=== PATIENT | female | born 1985 | race Caucasian/White ===

== ENCOUNTER 2021-03-04 05:49 | Emergency (ER) | payer BC, MEDICAID, SELFPAY ==
[2021-03-04 05:50] VITALS: BP 127/91; PULSE 87; RESP 16; TEMP 36.4; O2SAT 99; BMI 22.0
--- NOTE | 2021-03-04 06:20 | EX.ED.DYSGE1 ---
HPI History of Present Illness Chief Complaint: Wound Informant: patient Narrative Narrative: Patient's noted a swollen area in the inside of her left ear for several days. Is getting more tender. No drainage. No fevers chills or sweats. No known trauma. Nothing that she knows started it. No other complaints. Nothing makes it better or worse other than pressing on it makes it worse. PFSH PFSH Medical History Anxiety Asthma Depression Home Medications albuterol sulfate [Proair Hfa (SP)Vent Pts] 1 - 2 puff INHALATION Q4H PRN PRN 12/16/14 [History Last Taken 05/16/15] citalopram 20 mg PO DAILY 12/16/14 [History Last Taken 05/16/15] clonazepam 0.5 mg PO BID 12/16/14 [History Last Taken 05/16/15] loratadine [Claritin] 10 mg PO DAILY 12/16/14 [History Last Taken 12/16/14] mometasone-formoterol [Dulera 200 Mcg/5 Mcg Inhaler] 8.8 g IH Q4H PRN PRN 02/06/15 [History Last Taken 05/16/15] cyclobenzaprine 10 mg PO TID PRN #20 tablet 05/16/15 [Rx Last Taken Unknown] naproxen 500 mg PO BID #20 tab 05/16/15 [Rx Last Taken Unknown] cephalexin 500 mg PO Q6 #40 capsule 05/28/15 [Rx Last Taken Unknown] oxycodone-acetaminophen 1 - 2 tab PO Q4H PRN PRN #20 tab 05/28/15 [Rx Last Taken Unknown] sulfamethoxazole-trimethoprim 1 tab PO BID #20 tablet 05/28/15 [Rx Last Taken Unknown] clindamycin HCl 300 mg PO 4X/DAY #30 capsule 07/20/15 [Rx Last Taken Unknown] naproxen [Naprosyn] 500 mg PO BID #14 tab 07/20/15 [Rx Last Taken Unknown] oxycodone-acetaminophen 1 tab PO Q4H PRN PRN #20 tablet 07/20/15 [Rx Last Taken Unknown] sulfamethoxazole-trimethoprim [Bactrim DS] 1 tab PO BID #14 tab 03/04/21 [Rx Last Taken Unknown] Allergy/AdvReac Type Severity Reaction Status Date / Time No Known Allergies Allergy Verified 03/04/21 05:52 Social History Smoking Status: Current every day smoker tobacco type: cigarettes ROS ROS ED Constitutional Constitutional ED: Denies chills or fever(s) Eyes Eyes: Denies blurry vision or change in vision ENT ENT ED: Reports ear pain; Denies rhinorrhea or sore throat Respiratory/Chest Respiratory/Chest: Denies cough Gastrointestinal Gastrointestinal: Denies nausea or vomiting Musculoskeletal Musculoskeletal: Denies neck pain Integumentary Reports abscess and other Details: See history of present illness. Neurologic Neurologic: Denies headache(s), paresthesias or weakness Endocrine Endocrinology: Denies polydipsia or polyuria EXAM Physical Exam Const Vital Signs: 03/04/21 05:50 Temperature 97.6 F L Temperature Source Temporal Pulse Rate 87 Respiratory Rate 16 Blood Pressure 127/91 H Blood Pressure Mean 103 Pulse Ox 99 Oxygen Delivery Method Room Air Positive well nourished and well developed General Appearance ED: well developed and NAD HEENT HEENT Narrative: Patient has a 5 mm around abscess pointing on the external opening of her auditory canal. There is some mild erythema. The auricle itself is not red or inflamed at this time. Tympanic membrane is normal. There is no facial rash or extension onto the face. Negative Lee sign. No visual complaints either Eyes PERRL and EOMs intact bilaterally General Eye ED: Negative for pale conjunctiva or scleral icterus Neck no lymphadenopathy Resp normal respiratory effort Skin Skin Narrative: See above under ear section. MDM MDM MDM Narrative Medical decision making narrative: I discussed risks benefits and options with the patient. We chose to proceed with drainage. I explained that anesthesia would probably be more painful than just a quick incision. She agreed with this. Procedure: Drainage of abscess The area was cleansed with alcohol. An 11 blade was used to unroofed the abscess. We are able to then use a Q-tip to milk out a fair amount of purulent material. Some of this was moist and fresh. Some of this was harder and older like an epidermal cyst type material. She actually tolerated this surprisingly well. Because of the location next to the cartilage, the erythema in the size I will start her on a course of antibiotics. Discharge Plan Triage Chief Complaint: Wound ED Provider: Odilon De Jesus Dx/Rx/DC Orders Clinical Impression: Abscess of left ear canal Instructions: ED Abscess Incision And Drainage Prescriptions: New sulfamethoxazole-trimethoprim [Bactrim DS] 800-160 mg tablet 1 tab PO BID Qty: 14 RF: 0 No Action clonazepam 0.5 MG tablet 0.5 mg PO BID RF: 0 citalopram 20 MG tablet 20 mg PO DAILY RF: 0 albuterol sulfate [ProAir HFA] 1 PUFF inhaler 1 - 2 puff inhalation Q4H PRN PRN (Reason: Sob &/Or Wheezing) RF: 0 loratadine [Allergy Relief (loratadine)] 10 MG tablet 10 mg PO DAILY RF: 0 mometasone-formoterol [Dulera] 8.8 GM HFA aerosol inhaler 8.8 g IH Q4H PRN PRN (Reason: Sob &/Or Wheezing) RF: 0 cyclobenzaprine 10 MG tablet 10 mg PO TID PRN (Reason: Muscle Spasm) Qty: 20 RF: 0 naproxen 500 MG tablet 500 mg PO BID Qty: 20 RF: 0 oxycodone-acetaminophen 1 TABLET tablet 1 - 2 tab PO Q4H PRN PRN (Reason: Pain) Qty: 20 RF: 0 sulfamethoxazole-trimethoprim 1 TABLET tablet 1 tab PO BID Qty: 20 RF: 0 cephalexin 500 MG capsule 500 mg PO Q6 Qty: 40 RF: 0 clindamycin HCl 300 MG capsule 300 mg PO 4X/DAY Qty: 30 RF: 0 oxycodone-acetaminophen 1 TABLET tablet 1 tab PO Q4H PRN PRN (Reason: Pain) Qty: 20 RF: 0 naproxen [Naprosyn] 500 MG tablet 500 mg PO BID Qty: 14 RF: 0 Primary Care Provider: Care Physician,No Primary Referrals: Care Physician,No Primary [Primary Care Provider] - Activity Restrictions/Additional Instructions: Follow-up with your physician if not better in 3 to 5 days. Disposition Disposition: Home, Self Care Discharge Date/Time: 03/04/21 06:38
== END 2021-03-04 06:38 | disposition home or self-care (01) ==
PROVIDERS: Emergency Provider Emergency Medicine
DX: H60.02 Abscess of left external ear (principal); F17.210 Nicotine dependence, cigarettes, uncomplicated; J45.909 Unspecified asthma, uncomplicated; F41.9 Anxiety disorder, unspecified; F32.A Depression, unspecified
CPT/HCPCS: 69020; 99282

== ENCOUNTER 2021-03-17 21:34 | Emergency (ER) | payer BC, MEDICAID, SELFPAY ==
[2021-03-17 21:34] VITALS: BP 131/87; PULSE 103; RESP 16; TEMP 36.4; O2SAT 100; BMI 22.0
--- NOTE | 2021-03-17 22:09 | EX.ED.DYSGE1 ---
HPI History of Present Illness Chief Complaint: Wound Detail of Chief Complaint: Abscess left axilla Informant: patient Onset/Context/Timing Onset: Weeks Context: Gradual Onset Current Severity: Moderate Maximum Severity: Moderate Narrative Narrative: Patient presents secondary to increasing size of abscess in left axilla. Patient states it was a small lump for several weeks. She was here earlier this month secondary to a small abscess in her ear canal that was drained. She was put on 7 days of Bactrim. She states after completing the course of antibiotics the abscess in her left axilla seem to enlarge. She initially had a small amount of drainage but has not had any drainage from the wound in several days. No fever or chills. [facility] Medical History Anxiety Asthma Depression Home Medications albuterol sulfate [Proair Hfa (SP)Vent Pts] 1 - 2 puff INHALATION Q4H PRN PRN 12/16/14 [History Last Taken 05/16/15] citalopram 20 mg PO DAILY 12/16/14 [History Last Taken 05/16/15] clonazepam 0.5 mg PO BID 12/16/14 [History Last Taken 05/16/15] loratadine [Claritin] 10 mg PO DAILY 12/16/14 [History Last Taken 12/16/14] mometasone-formoterol [Dulera 200 Mcg/5 Mcg Inhaler] 8.8 g IH Q4H PRN PRN 02/06/15 [History Last Taken 05/16/15] cyclobenzaprine 10 mg PO TID PRN #20 tablet 05/16/15 [Rx Last Taken Unknown] naproxen 500 mg PO BID #20 tab 05/16/15 [Rx Last Taken Unknown] cephalexin 500 mg PO Q6 #40 capsule 05/28/15 [Rx Last Taken Unknown] oxycodone-acetaminophen 1 - 2 tab PO Q4H PRN PRN #20 tab 05/28/15 [Rx Last Taken Unknown] sulfamethoxazole-trimethoprim 1 tab PO BID #20 tablet 05/28/15 [Rx Last Taken Unknown] clindamycin HCl 300 mg PO 4X/DAY #30 capsule 07/20/15 [Rx Last Taken Unknown] naproxen [Naprosyn] 500 mg PO BID #14 tab 07/20/15 [Rx Last Taken Unknown] oxycodone-acetaminophen 1 tab PO Q4H PRN PRN #20 tablet 07/20/15 [Rx Last Taken Unknown] sulfamethoxazole-trimethoprim [Bactrim DS] 1 tab PO BID #14 tab 03/04/21 [Rx Last Taken Unknown] cephalexin 500 mg PO Q6H #40 cap 03/17/21 [Rx Last Taken Unknown] sulfamethoxazole-trimethoprim [Bactrim DS] 1 tab PO BID #20 tab 03/17/21 [Rx Last Taken Unknown] Allergy/AdvReac Type Severity Reaction Status Date / Time No Known Allergies Allergy Verified 03/17/21 21:36 Social History Smoking Status: Current every day smoker tobacco type: cigarettes ROS ROS ED Constitutional Constitutional ED: Denies chills or fever(s) Eyes Eyes: Denies change in vision Cardiovascular Cardiovascular: Denies chest pain Respiratory/Chest Respiratory/Chest: Denies cough or dyspnea Gastrointestinal Gastrointestinal: Denies abdominal pain, diarrhea, nausea or vomiting Musculoskeletal Musculoskeletal: Denies back pain or myalgias Integumentary Reports abscess; Denies rash Neurologic Neurologic: Denies headache(s) or weakness Psychiatric Psychiatric: Denies anxiety or depression Allergic/Immunologic Allergic/Immunologic ED: Denies urticaria EXAM Physical Exam Const Vital Signs: 03/17/21 21:34 03/17/21 22:28 Temperature 97.5 F L 97.5 F L Temperature Source Temporal Temporal Pulse Rate 103 H 103 H Respiratory Rate 16 16 Blood Pressure 131/87 H 131/87 H Blood Pressure Mean 101 101 Pulse Ox 100 100 Oxygen Delivery Method Room Air Room Air Positive well nourished and well developed General Appearance ED: well developed HEENT Reports normocephalic and head/scalp atraumatic Eyes PERRL and EOMs intact bilaterally Neck supple Chest Wall inspection of chest normal and palpation of chest normal Resp normal respiratory effort and clear to auscultation bilaterally Cardio regular rate and regular rhythm GI normal to inspection, nondistended, normoactive bowel sounds Palpation: soft Extremity normal to inspection Extremity Narrative: 2 x 3 cm cutaneous abscess left axilla. No cellulitis. No spontaneous drainage. Neuro oriented x3 and no sensory deficits noted Sensorium / Orientation: alert Motor Exam: strength 5/5 throughout Psych mental status grossly normal Skin Skin Narrative: Abscess as noted above. MDM MDM MDM Narrative Medical decision making narrative: Patient was given a dose of Bactrim and Keflex. I&D set up ordered. Treatment and Re-Evaluation Comments:: I&D performed after injecting 1 cc of 1% lidocaine locally. X incision with a #11 blade is made. Minimal drainage noted. Area is still firm and I anticipate additional drainage as she takes antibiotics. She will continue warm compresses. Discharge Plan Triage Chief Complaint: Wound ED Provider: Brittani Rinaldi Dx/Rx/DC Orders Clinical Impression: Cutaneous abscess Instructions: ED Abscess Incision And Drainage Prescriptions: New sulfamethoxazole-trimethoprim [Bactrim DS] 800-160 mg tablet 1 tab PO BID Qty: 20 RF: 0 cephalexin 500 mg capsule 500 mg PO Q6H Qty: 40 RF: 0 No Action clonazepam 0.5 MG tablet 0.5 mg PO BID RF: 0 citalopram 20 MG tablet 20 mg PO DAILY RF: 0 albuterol sulfate [ProAir HFA] 1 PUFF inhaler 1 - 2 puff inhalation Q4H PRN PRN (Reason: Sob &/Or Wheezing) RF: 0 loratadine [Allergy Relief (loratadine)] 10 MG tablet 10 mg PO DAILY RF: 0 mometasone-formoterol [Dulera] 8.8 GM HFA aerosol inhaler 8.8 g IH Q4H PRN PRN (Reason: Sob &/Or Wheezing) RF: 0 cyclobenzaprine 10 MG tablet 10 mg PO TID PRN (Reason: Muscle Spasm) Qty: 20 RF: 0 naproxen 500 MG tablet 500 mg PO BID Qty: 20 RF: 0 oxycodone-acetaminophen 1 TABLET tablet 1 - 2 tab PO Q4H PRN PRN (Reason: Pain) Qty: 20 RF: 0 sulfamethoxazole-trimethoprim 1 TABLET tablet 1 tab PO BID Qty: 20 RF: 0 cephalexin 500 MG capsule 500 mg PO Q6 Qty: 40 RF: 0 clindamycin HCl 300 MG capsule 300 mg PO 4X/DAY Qty: 30 RF: 0 oxycodone-acetaminophen 1 TABLET tablet 1 tab PO Q4H PRN PRN (Reason: Pain) Qty: 20 RF: 0 naproxen [Naprosyn] 500 MG tablet 500 mg PO BID Qty: 14 RF: 0 sulfamethoxazole-trimethoprim [Bactrim DS] 800-160 mg tablet 1 tab PO BID Qty: 14 RF: 0 Primary Care Provider: Care Physician,No Primary Referrals: Feliz Garvin MD [STAFF PHYSICIAN] - As Needed Care Physician,No Primary [Primary Care Provider] - Disposition Disposition: Home, Self Care
[2021-03-17 22:28] VITALS: BP 131/87; PULSE 103; RESP 16; TEMP 36.4; O2SAT 100
[2021-03-17] MEDS: Cephalexin 500 MG Capsule PO (22:52)
[2021-03-17] MEDS: Lidocaine 1% (20 ml mdv) 20 ML Vial INFILT (22:52)
[2021-03-17] MEDS: Smz/Tmp Ds Tablet 1 TABLET PO (22:52)
== END 2021-03-17 22:54 | disposition home or self-care (01) ==
PROVIDERS: Emergency Provider Emergency Medicine
DX: L02.412 Cutaneous abscess of left axilla (principal); F17.210 Nicotine dependence, cigarettes, uncomplicated
CPT/HCPCS: 10060; 99283

== ENCOUNTER 2021-05-25 07:15 | Emergency (ER) | payer BC, MEDICAID, SELFPAY ==
[2021-05-25 07:16] VITALS: BP 131/89; PULSE 103; RESP 16; TEMP 36.4; O2SAT 100; BMI 21.2
--- NOTE | 2021-05-25 07:31 | ED.VIS.FEGU ---
HPI HPI - Female History of Present Illness Chief Complaint: Female C/O Detail of Chief Complaint: Concern for STD Informant: patient Narrative Narrative: Patient presents to the emergency department with concern about possible STD. Patient states that she has had STDs before and feels like she may have one again. Patient states that she had intercourse with her boyfriend for 5 days ago and did not use protection. Patient started with a yellowish discharge 2 days ago. Patient has some itching and lower pelvic discomfort. Patient denies fever or vomiting. Prior similar symptoms: Yes PFSH PFSH Medical History Anxiety Asthma Depression Home Medications albuterol sulfate [Proair Hfa (SP)Vent Pts] 1 - 2 puff INHALATION Q4H PRN PRN 12/16/14 [History Last Taken 05/16/15] citalopram 20 mg PO DAILY 12/16/14 [History Last Taken 05/16/15] clonazepam 0.5 mg PO BID 12/16/14 [History Last Taken 05/16/15] loratadine [Claritin] 10 mg PO DAILY 12/16/14 [History Last Taken 12/16/14] mometasone-formoterol [Dulera 200 Mcg/5 Mcg Inhaler] 8.8 g IH Q4H PRN PRN 02/06/15 [History Last Taken 05/16/15] cyclobenzaprine 10 mg PO TID PRN #20 tablet 05/16/15 [Rx Last Taken Unknown] naproxen 500 mg PO BID #20 tab 05/16/15 [Rx Last Taken Unknown] cephalexin 500 mg PO Q6 #40 capsule 05/28/15 [Rx Last Taken Unknown] oxycodone-acetaminophen 1 - 2 tab PO Q4H PRN PRN #20 tab 05/28/15 [Rx Last Taken Unknown] sulfamethoxazole-trimethoprim 1 tab PO BID #20 tablet 05/28/15 [Rx Last Taken Unknown] clindamycin HCl 300 mg PO 4X/DAY #30 capsule 07/20/15 [Rx Last Taken Unknown] naproxen [Naprosyn] 500 mg PO BID #14 tab 07/20/15 [Rx Last Taken Unknown] oxycodone-acetaminophen 1 tab PO Q4H PRN PRN #20 tablet 07/20/15 [Rx Last Taken Unknown] sulfamethoxazole-trimethoprim [Bactrim DS] 1 tab PO BID #14 tab 03/04/21 [Rx Last Taken Unknown] cephalexin 500 mg PO Q6H #40 cap 03/17/21 [Rx Last Taken Unknown] naproxen [Naprosyn] 500 mg PO BID PRN #20 tab 03/17/21 [Rx Last Taken Unknown] sulfamethoxazole-trimethoprim [Bactrim DS] 1 tab PO BID #20 tab 03/17/21 [Rx Last Taken Unknown] Allergy/AdvReac Type Severity Reaction Status Date / Time No Known Allergies Allergy Verified 05/25/21 07:18 Social History Smoking Status: Current every day smoker tobacco type: cigarettes ROS ROS ED Constitutional Constitutional ED: Reports systems reviewed and no addt'l complaints, except as documented; Denies body ache(s), change in weight or chills Eyes Eyes: Denies acute decrease in peripheral vision, change in vision, double vision or loss of vision ENT ENT ED: Reports none; Denies ear pain, lip swelling, loss taste/smell, neck pain, otalgia or sore throat Cardiovascular Cardiovascular: Reports none; Denies abdominal pain, chest pain with activity, leg edema, lightheadedness, palpitations, rapid heart rate or syncope Respiratory/Chest Respiratory/Chest: Reports none; Denies change in mental status, dry cough, dyspnea, hemoptysis, shortness of breath at rest or shortness of breath with exertion Gastrointestinal Gastrointestinal: Reports none; Denies abdominal pain, change in stool character, diarrhea, hematemesis, hematochezia, melena, rectal bleeding or vomiting Genitourinary Genitourinary ED: Reports none and other Details: Vaginal discharge and pelvic pain ; Denies abdominal discomfort, anuria, dysuria, genital pain or polyuria Musculoskeletal Musculoskeletal: Reports none; Denies arthralgias, back pain, difficulty walking, extremity pain, muscle weakness or myalgias Integumentary Reports none; Denies abscess or rash Neurologic Neurologic: Reports none; Denies abnormal gait, confusion, focal weakness, frequent falls, headache(s), loss of vision, numbness, paresthesias, radicular pain, vertigo or weakness Psychiatric Psychiatric: Reports systems reviewed and no addt'l complaints, except as documented and none; Denies behavioral changes, confusion, difficulty concentrating, hallucinations, suicidal ideation, tactile hallucinations or visual hallucinations Endocrine Endocrinology: Denies none, cold intolerance, excessive sweating, fatigue or heat intolerance Hematologic/Lymphatic Hematologic/Lymphatic: Reports none; Denies anemia, easy bleeding or easy bruising Allergic/Immunologic Allergic/Immunologic ED: Denies as per HPI, none, lip swelling, mouth swelling, throat swelling, tongue swelling or hives EXAM Physical Exam Const Vital Signs: 05/25/21 07:16 Temperature 97.5 F L Temperature Source Temporal Pulse Rate 103 H Respiratory Rate 16 Blood Pressure 131/89 H Blood Pressure Mean 103 Pulse Ox 100 Oxygen Delivery Method Room Air Positive well nourished and well developed General Appearance ED: well developed and NAD HEENT Reports TM's clear and moist mucous membranes normocephalic and atraumatic; Negative for trauma or tenderness Tympanic Membrane ED: Yes TM's clear Eyes PERRL and EOMs intact bilaterally General Eye ED: Negative for pale conjunctiva or scleral icterus Neck no lymphadenopathy, supple and no JVD General: Negative for tenderness Chest Wall inspection of chest normal and palpation of chest normal Chest: Negative for tenderness Resp normal respiratory effort and clear to auscultation bilaterally Effort and Inspection: Negative for respiratory distress or pain with movement Auscultation: Negative for rhonchi, wheezes or diminished lung sounds Cardio regular rate, regular rhythm, S1 normal heart sound, S2 normal heart sound and no murmurs Peripheral Pulses: pulses 2+ throughout GI normal to inspection, nondistended, normoactive bowel sounds, soft to palpation, non-distended and no masses GI Narrative: Mild diffuse suprapubic tenderness on exam. There is no rebound, rigidity, or peritoneal signs. Back/Spine no CVA tenderness and no thoracic nor lumbar tenderness Extremity normal to inspection General Extremety ED: Negative for edema General Extremity: Negative for edema Neuro oriented x3, CN's II-XII intact bilaterally, no sensory deficits noted and gait normal Sensorium / Orientation: awake, alert, oriented to person, oriented to place and oriented to time Motor Exam: strength 5/5 throughout and strength abnormal Psych mental status grossly normal Skin no rashes or lesions noted and no wounds MDM MDM MDM Narrative Medical decision making narrative: Patient will have urine sent for GC and chlamydia and urinalysis. I will empirically treat her with Rocephin and Zithromax and Flagyl. Patient advised to follow-up with primary care physician within next 3 to 5 days. She is advised to refrain from intercourse until she gets her results. Discharge Plan Triage Chief Complaint: Female C/O ED Provider: Provider,Ed Physician Dx/Rx/DC Orders Clinical Impression: Vaginitis Instructions: Vaginal Infection, Bacterial Vaginosis, ED Pelvic Pain, Unknown Cause Prescriptions: No Action clonazepam 0.5 MG tablet 0.5 mg PO BID RF: 0 citalopram 20 MG tablet 20 mg PO DAILY RF: 0 albuterol sulfate [ProAir HFA] 1 PUFF inhaler 1 - 2 puff inhalation Q4H PRN PRN (Reason: Sob &/Or Wheezing) RF: 0 loratadine [Allergy Relief (loratadine)] 10 MG tablet 10 mg PO DAILY RF: 0 mometasone-formoterol [Dulera] 8.8 GM HFA aerosol inhaler 8.8 g IH Q4H PRN PRN (Reason: Sob &/Or Wheezing) RF: 0 cyclobenzaprine 10 MG tablet 10 mg PO TID PRN (Reason: Muscle Spasm) Qty: 20 RF: 0 naproxen 500 MG tablet 500 mg PO BID Qty: 20 RF: 0 oxycodone-acetaminophen 1 TABLET tablet 1 - 2 tab PO Q4H PRN PRN (Reason: Pain) Qty: 20 RF: 0 sulfamethoxazole-trimethoprim 1 TABLET tablet 1 tab PO BID Qty: 20 RF: 0 cephalexin 500 MG capsule 500 mg PO Q6 Qty: 40 RF: 0 clindamycin HCl 300 MG capsule 300 mg PO 4X/DAY Qty: 30 RF: 0 oxycodone-acetaminophen 1 TABLET tablet 1 tab PO Q4H PRN PRN (Reason: Pain) Qty: 20 RF: 0 naproxen [Naprosyn] 500 MG tablet 500 mg PO BID Qty: 14 RF: 0 sulfamethoxazole-trimethoprim [Bactrim DS] 800-160 mg tablet 1 tab PO BID Qty: 14 RF: 0 sulfamethoxazole-trimethoprim [Bactrim DS] 800-160 mg tablet 1 tab PO BID Qty: 20 RF: 0 cephalexin 500 mg capsule 500 mg PO Q6H Qty: 40 RF: 0 naproxen [Naprosyn] 500 mg tablet 500 mg PO BID PRN (Reason: pain) Qty: 20 RF: 0 Primary Care Provider: Care Physician,No Primary Referrals: Chance Manuel MD [NON-STAFF] - 3-5 Days Care Physician,No Primary [Primary Care Provider] - Disposition Disposition: Home, Self Care
[2021-05-25] MEDS: metroNIDAZOLE 500 MG Tablet 2000 MG PO (07:41)
[2021-05-25] MEDS: Azithromycin 250 MG Tablet 1000 MG PO (07:41)
[2021-05-25 07:43] LABS: Bacteria 0 SEEN /hpf (None Seen); Mucous, Urine 0 SEEN /hpf (<or=2+); Red Blood Cells-Urine 0 SEEN /hpf (0-5)
[2021-05-25 07:49] LABS: Color, Urine Yellow (Yellow); Glucose, Dipstick Normal (Normal); Ketone-Dipstick Negative (Negative); Leukocyte Esterase-Dipstick 500 /ul (Negative); Nitrite-Dipstick Negative (Negative); Occult Blood-Urine 10 /ul (Negative); Protein-Dipstick 15 mg/dl (Negative); Urine Bilirubin Dipstick Negative (Negative); Urine Clarity Clear (Clear); Urine Urobilinogen Normal (Normal)
[2021-05-25] MEDS: Ceftriaxone 500 MG Vial IM (07:53)
[2021-05-25 07:57] LABS: Squamous Epithelial Cells - UA 0-5 SEEN /hpf (5-10); White Blood Cells 5-10 SEEN /hpf (0-5)
[2021-05-25 11:00] LABS: Chlamydia Trachomatis by PCR Negative (Negative); Neisserai gonorrhoeae by PCR Negative (Negative); Probe Check PASS; Sample Adequacy Control PASS; Specimen Processing Control PASS
== END 2021-05-25 07:56 | disposition home or self-care (01) ==
LOC: ED 07:49
PROVIDERS: Emergency Provider Emergency Medicine
DX: N76.0 Acute vaginitis (principal); F17.210 Nicotine dependence, cigarettes, uncomplicated; F32.A Depression, unspecified; F41.9 Anxiety disorder, unspecified; J45.909 Unspecified asthma, uncomplicated; Z79.1 Long term (current) use of non-steroidal anti-inflammatories (NSAID); Z79.51 Long term (current) use of inhaled steroids; Z79.899 Other long term (current) drug therapy
CPT/HCPCS: 81001; 87491; 87591; 96372; 99283

== ENCOUNTER 2021-06-02 16:28 | Emergency (ER) | payer BC, MEDICAID, SELFPAY ==
[2021-06-02 16:30] VITALS: BP 119/94; PULSE 90; RESP 18; TEMP 36.4; O2SAT 100; BMI 22.8
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
[2021-06-02] MEDS: Smz/Tmp Ds Tablet 1 TABLET PO (16:53)
== END 2021-06-02 17:03 | disposition home or self-care (01) ==
PROVIDERS: Emergency Provider Emergency Medicine; Visit Provider Emergency Medicine
DX: L03.115 Cellulitis of right lower limb (principal); F17.210 Nicotine dependence, cigarettes, uncomplicated
CPT/HCPCS: 99283